=== PATIENT | female | born 1965 | race Caucasian/White ===

== ENCOUNTER → 2017-09-22 08:00 | Outpatient (CLI) | payer BC | END | disposition home or self-care (01) | LOC: D.MAMMO 08:00 | DX: Z12.31 Encounter for screening mammogram for malignant neoplasm of breast (principal) ==

== ENCOUNTER → 2017-10-12 18:45 | Outpatient (CLI) | payer BC | END | disposition home or self-care (01) | LOC: D.MAMMO 11:45 | DX: R92.8 Other abnormal and inconclusive findings on diagnostic imaging of breast (principal) ==